=== PATIENT | female | born 1970 | race Caucasian/White ===

== ENCOUNTER → 2018-08-27 | Outpatient (CLI) | payer BC | LOC: MC.RAD 09:50 | DX: Z12.31 Encounter for screening mammogram for malignant neoplasm of breast (principal); R92.0 Mammographic microcalcification found on diagnostic imaging of breast ==

== ENCOUNTER → 2018-08-31 | Outpatient (CLI) | payer BC | LOC: MC.RAD 11:23 | DX: R92.0 Mammographic microcalcification found on diagnostic imaging of breast (principal) ==

== ENCOUNTER → 2018-09-09 | Outpatient (CLI) | payer BC | LOC: MC.RAD 06:55 | DX: R92.0 Mammographic microcalcification found on diagnostic imaging of breast (principal) ==

== ENCOUNTER → 2019-10-18 | Outpatient (CLI) | payer BC | LOC: MC.RAD 06:52 | DX: Z12.31 Encounter for screening mammogram for malignant neoplasm of breast (principal) ==